=== PATIENT | female | born 1960 | race Asian ===

== ENCOUNTER 2020-04-01 12:53 | Emergency (ER) | payer BC ==
[2020-04-01] MEDS ORDERED: Sodium Chloride 0.9% 1,000 ML IV STA (13:39)
[2020-04-01] MEDS ORDERED: LORazepam 2 MG/ML SDV IVPUSH ONE (13:39)
[2020-04-01] MEDS ORDERED: Ondansetron 4 MG/2 ML SDV IVPUSH ONE (13:39)
--- NOTE | 2020-04-01 14:12 | CR ---
PROCEDURE INFORMATION: Exam: XR Chest, 2 Views Exam date and time: 04/01/2020 2:03 PM Age: 59 years old Clinical indication: Shortness of breath; Chest pain TECHNIQUE: Imaging protocol: XR of the chest Views: 2 views. COMPARISON: No relevant prior studies available. FINDINGS: Lungs: Unremarkable. No consolidation. Pleural space: Unremarkable. No pleural effusion. No pneumothorax. Heart/Mediastinum: Unremarkable. No cardiomegaly. Bones/joints: Unremarkable. IMPRESSION: No acute findings. Thank you for allowing us to participate in the care of your patient. Dictated and Authenticated by: Riley Larson DO 04/01/2020 3:11 PM Central Time ([place] & [place]) ZARINA
--- NOTE | 2020-04-01 14:21 | EDM.PDOC ---
ED HPI GENERAL MEDICAL PROBLEM - General Chief Complaint: Chest Pain Stated Complaint: [facility] Time Seen by Provider: 04/01/20 13:02 Source of Information: Reports: Patient History Limitations: Reports: No Limitations - History of Present Illness INITIAL COMMENTS - FREE TEXT/NARRATIVE: Patient is a 59-year-old female presenting to the ER via [facility] with complaints of a 2-week history of fatigue, shortness of breath, palpitations, back pain, and weakness in her extremities. She speaks limited Mohawk, therefore NICOLE Domingo was used to interpret Mandarin. Patient states that over the last 2 weeks, she has had symptoms of shortness of breath, feeling like her heart is racing, occasional chest pain, and mid upper back pain. Today around 11 AM, she had worsening of symptoms. States that she felt like she could not breathe and her extremities went weak. She was seen in the clinic by Dr. Banuelos. Work-up was completed there and she states it was found to be normal. She was scheduled for an echocardiogram at 2 PM today, however she will miss that appointment now as she is in the ER. She states that she has had a number of test completed while she was still living in [place]. She describes a CT scan of her chest, an MRI, and EKGs. She states that at one point she was told that she had had an ND in the past based on the results of her MRI. She has been taking a medication/supplement being sent to her from [place] by her sister. She is not sure what exactly is in that medication, however she states it supposed to be for chest pain. She denies taking any prescription medications. She denies any fever or chills. She states her shortness of breath is worse when she lies flat. She does admit to feeling "stressed "due to the coronavirus. Vital signs on triage were stable. Temp 98.2, pulse 75, respiratory rate was 24, it has been as high as 38 at times. Oxygen saturation is 100% on room air. Blood pressure 140/69. 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: Reports: IV/IO Left Chest Pain Score (Numeric/FACES): 7 - Related Data Allergies Allergy/AdvReac Type Severity Reaction Status Date / Time oxycodone HCl AdvReac Dizziness Verified 04/01/20 13:17 [From OxyContin] Home Meds: Home Meds LORazepam [Ativan] 0.5 mg PO Q8H PRN #15 tab 04/01/20 [Rx] Ubidecarenone [Co Q-10] 100 mg PO DAILY 04/01/20 [History] Past Medical History Cardiovascular History: Reports: ND Gastrointestinal History: Reports: GERD, Helicobacter Pylori Social & Family History - Tobacco Use Tobacco Use Status *Q: Never Tobacco User - Recreational Drug Use Recreational Drug Use: No ED ROS GENERAL - Review of Systems Review Of Systems: See Below Constitutional: Reports: Fatigue. Denies: Fever, Chills HEENT: Reports: No Symptoms Respiratory: Reports: Shortness of Breath. Denies: Cough Cardiovascular: Reports: Chest Pain, Palpitations. Denies: Edema, Lightheadedness, Syncope Endocrine: Reports: No Symptoms GI/Abdominal: Reports: Nausea. Denies: Abdominal Pain, Diarrhea, Vomiting : Reports: No Symptoms. Denies: Dysuria Musculoskeletal: Reports: No Symptoms Skin: Reports: No Symptoms Neurological: Denies: Dizziness, Headache Psychiatric: Reports: Anxiety Hematologic/Lymphatic: Reports: No Symptoms Immunologic: Reports: No Symptoms ED EXAM, GENERAL - Physical Exam Exam: See Below General Appearance: Alert, WD/WN, Anxious Respiratory/Chest: No Respiratory Distress, Lungs Clear, Normal Breath Sounds, No Accessory Muscle Use, Other (Left-sided chest wall tenderness) Cardiovascular: Normal Peripheral Pulses, Regular Rate, Rhythm, No Edema, No Gallop, No JVD, No Murmur, No Rub GI/Abdominal: Normal Bowel Sounds, Soft, Non-Tender, No Organomegaly, No Distention, No Abnormal Bruit, No Mass Neurological: Alert, Oriented, CN II-XII Intact, Normal Cognition, Normal Gait, Normal Reflexes, No Motor/Sensory Deficits Psychiatric: Normal Affect, Normal Mood Skin Exam: Warm, Dry, Intact, Normal Color, No Rash #2 Interpretation EKG Date: 04/01/20 Time: 14:22 Rhythm: NSR Rate (Beats/Min): 70 Kimberly: Normal P-Wave: Present QRS: Normal ST-T: Normal QT: Normal Course - Vital Signs Last Recorded V/S: Last Vital Signs Temp 98.2 F 04/01/20 12:59 Pulse 75 04/01/20 12:59 Resp 24 H 04/01/20 12:59 BP 140/69 04/01/20 12:59 Pulse Ox 100 04/01/20 12:59 - Orders/Labs/Meds Orders: Active Orders 24 hr Category Date Time Status CORONAVIRUS COVID-19 PCR [facility] Routine Lab 04/01/20 16:16 Received Labs: Laboratory Tests 04/01/20 04/01/20 04/01/20 Range/Units 13:56 13:56 13:56 WBC 6.46 (3.98-10.04) K/mm3 RBC 4.37 (3.98-5.22) M/mm3 Hgb 13.1 (11.2-15.7) gm/dl Hct 39.5 (34.1-44.9) % MCV 90.4 (79.4-94.8) fl MCH 30.0 (25.6-32.2) pg MCHC 33.2 (32.2-35.5) g/dl RDW Std Deviation 39.8 (36.4-46.3) fL Plt Count 261 (182-369) K/mm3 MPV 10.7 (9.4-12.3) fl Neut % (Auto) 67.9 (34.0-71.1) % Lymph % (Auto) 24.8 (19.3-51.7) % Frontier % (Auto) 5.9 (4.7-12.5) % Eos % (Auto) 0.5 L (0.7-5.8) Baso % (Auto) 0.6 (0.1-1.2) % Neut # (Auto) 4.39 (1.56-6.13) K/mm3 Lymph # (Auto) 1.60 (1.18-3.74) K/mm3 Frontier # (Auto) 0.38 H (0.24-0.36) K/mm3 Eos # (Auto) 0.03 L (0.04-0.36) K/mm3 Baso # (Auto) 0.04 (0.01-0.08) K/mm3 D-Dimer, Quantitative < 0.19 L (0.19-0.50) mg/L Sodium 140 (136-145) mEq/L Potassium 3.6 (3.5-5.1) mEq/L Chloride 105 (98-107) mEq/L Carbon Dioxide 24 (21-32) mEq/L Anion Gap 14.6 (5-15) BUN 15 (7-18) mg/dL Creatinine 1.0 (0.55-1.02) mg/dL Est Cr Clr Drug Dosing TNP Estimated GFR (MDRD) 57 (>60) mL/min BUN/Creatinine Ratio 15.0 (14-18) Glucose 125 H (74-106) mg/dL Calcium 9.8 (8.5-10.1) mg/dL Total Bilirubin 0.5 (0.2-1.0) mg/dL AST 15 (15-37) U/L ALT 30 (14-59) U/L Alkaline Phosphatase 98 (46-116) U/L Troponin I 0.021 (0.00-0.056) ng/mL C-Reactive Protein <0.2 (<1.0) mg/dL NT-Pro-B Natriuret Pep (0-125) pg/mL Total Protein 8.4 H (6.4-8.2) g/dl Albumin 4.0 (3.4-5.0) g/dl Globulin 4.4 gm/dL Albumin/Globulin Ratio 0.9 L (1-2) Free T4 (0.76-1.46) ng/dL TSH 3rd Generation (0.358-3.74) uIU/mL Urine Color (Yellow) Urine Appearance (Clear) Urine pH (5.0-8.0) Ur Specific [place] (1.005-1.030) Urine Protein (Negative) Urine Glucose (UA) (Negative) Urine Ketones (Negative) Urine Occult Blood (Negative) Urine Nitrite (Negative) Urine Bilirubin (Negative) Urine Urobilinogen (0.2-1.0) Ur Leukocyte Esterase (Negative) Urine RBC (0-5) /hpf Urine WBC (0-5) /hpf Ur Squamous Epith Cells (0-5) /hpf Urine Bacteria (FEW) /hpf Urine Mucus (FEW) /hpf 04/01/20 04/01/20 04/01/20 Range/Units 13:56 13:56 17:00 WBC (3.98-10.04) K/mm3 RBC (3.98-5.22) M/mm3 Hgb (11.2-15.7) gm/dl Hct (34.1-44.9) % MCV (79.4-94.8) fl MCH (25.6-32.2) pg MCHC (32.2-35.5) g/dl RDW Std Deviation (36.4-46.3) fL Plt Count (182-369) K/mm3 MPV (9.4-12.3) fl Neut % (Auto) (34.0-71.1) % Lymph % (Auto) (19.3-51.7) % Frontier % (Auto) (4.7-12.5) % Eos % (Auto) (0.7-5.8) Baso % (Auto) (0.1-1.2) % Neut # (Auto) (1.56-6.13) K/mm3 Lymph # (Auto) (1.18-3.74) K/mm3 Frontier # (Auto) (0.24-0.36) K/mm3 Eos # (Auto) (0.04-0.36) K/mm3 Baso # (Auto) (0.01-0.08) K/mm3 D-Dimer, Quantitative (0.19-0.50) mg/L Sodium (136-145) mEq/L Potassium (3.5-5.1) mEq/L Chloride (98-107) mEq/L Carbon Dioxide (21-32) mEq/L Anion Gap (5-15) BUN (7-18) mg/dL Creatinine (0.55-1.02) mg/dL Est Cr Clr Drug Dosing Estimated GFR (MDRD) (>60) mL/min BUN/Creatinine Ratio (14-18) Glucose (74-106) mg/dL Calcium (8.5-10.1) mg/dL Total Bilirubin (0.2-1.0) mg/dL AST (15-37) U/L ALT (14-59) U/L Alkaline Phosphatase (46-116) U/L Troponin I 0.028 (0.00-0.056) ng/mL C-Reactive Protein (<1.0) mg/dL NT-Pro-B Natriuret Pep 40 (0-125) pg/mL Total Protein (6.4-8.2) g/dl Albumin (3.4-5.0) g/dl Globulin gm/dL Albumin/Globulin Ratio (1-2) Free T4 1.12 (0.76-1.46) ng/dL TSH 3rd Generation 0.998 (0.358-3.74) uIU/mL Urine Color (Yellow) Urine Appearance (Clear) Urine pH (5.0-8.0) Ur Specific [place] (1.005-1.030) Urine Protein (Negative) Urine Glucose (UA) (Negative) Urine Ketones (Negative) Urine Occult Blood (Negative) Urine Nitrite (Negative) Urine Bilirubin (Negative) Urine Urobilinogen (0.2-1.0) Ur Leukocyte Esterase (Negative) Urine RBC (0-5) /hpf Urine WBC (0-5) /hpf Ur Squamous Epith Cells (0-5) /hpf Urine Bacteria (FEW) /hpf Urine Mucus (FEW) /hpf 04/01/20 Range/Units 17:30 WBC (3.98-10.04) K/mm3 RBC (3.98-5.22) M/mm3 Hgb (11.2-15.7) gm/dl Hct (34.1-44.9) % MCV (79.4-94.8) fl MCH (25.6-32.2) pg MCHC (32.2-35.5) g/dl RDW Std Deviation (36.4-46.3) fL Plt Count (182-369) K/mm3 MPV (9.4-12.3) fl Neut % (Auto) (34.0-71.1) % Lymph % (Auto) (19.3-51.7) % Frontier % (Auto) (4.7-12.5) % Eos % (Auto) (0.7-5.8) Baso % (Auto) (0.1-1.2) % Neut # (Auto) (1.56-6.13) K/mm3 Lymph # (Auto) (1.18-3.74) K/mm3 Frontier # (Auto) (0.24-0.36) K/mm3 Eos # (Auto) (0.04-0.36) K/mm3 Baso # (Auto) (0.01-0.08) K/mm3 D-Dimer, Quantitative (0.19-0.50) mg/L Sodium (136-145) mEq/L Potassium (3.5-5.1) mEq/L Chloride (98-107) mEq/L Carbon Dioxide (21-32) mEq/L Anion Gap (5-15) BUN (7-18) mg/dL Creatinine (0.55-1.02) mg/dL Est Cr Clr Drug Dosing Estimated GFR (MDRD) (>60) mL/min BUN/Creatinine Ratio (14-18) Glucose (74-106) mg/dL Calcium (8.5-10.1) mg/dL Total Bilirubin (0.2-1.0) mg/dL AST (15-37) U/L ALT (14-59) U/L Alkaline Phosphatase (46-116) U/L Troponin I (0.00-0.056) ng/mL C-Reactive Protein (<1.0) mg/dL NT-Pro-B Natriuret Pep (0-125) pg/mL Total Protein (6.4-8.2) g/dl Albumin (3.4-5.0) g/dl Globulin gm/dL Albumin/Globulin Ratio (1-2) Free T4 (0.76-1.46) ng/dL TSH 3rd Generation (0.358-3.74) uIU/mL Urine Color Yellow (Yellow) Urine Appearance Clear (Clear) Urine pH 8.0 (5.0-8.0) Ur Specific [place] 1.025 (1.005-1.030) Urine Protein Negative (Negative) Urine Glucose (UA) Negative (Negative) Urine Ketones Negative (Negative) Urine Occult Blood Negative (Negative) Urine Nitrite Negative (Negative) Urine Bilirubin Negative (Negative) Urine Urobilinogen 0.2 (0.2-1.0) Ur Leukocyte Esterase Negative (Negative) Urine RBC Not seen (0-5) /hpf Urine WBC 0-5 (0-5) /hpf Ur Squamous Epith Cells 0-5 (0-5) /hpf Urine Bacteria Not seen (FEW) /hpf Urine Mucus Not seen (FEW) /hpf Meds: Medications Discontinued Medications Generic Name Dose Route Start Last Admin Trade Name Freq PRN Reason Stop Dose Admin Sodium Chloride 1,000 mls @ 150 mls/hr 04/01/20 13:39 04/01/20 14:33 Normal Saline IV 04/01/20 20:18 150 mls/hr NOW STA Administration Ketorolac Tromethamine 30 mg 04/01/20 15:38 04/01/20 16:10 Toradol IVPUSH 04/01/20 15:39 30 mg ONETIME ONE Administration Lorazepam 0.5 mg 04/01/20 13:39 04/01/20 14:28 Ativan IVPUSH 04/01/20 13:40 0.5 mg ONETIME ONE Administration Ondansetron HCl 4 mg 04/01/20 13:39 04/01/20 14:30 Zofran IVPUSH 04/01/20 13:40 4 mg ONETIME ONE Administration - Re-Assessments/Exams Free Text/Narrative Re-Assessment/Exam: Patient is a 59-year-old female presenting to the emergency department the complaints of a 2-week history of fatigue, shortness of breath, palpitations, back pain, and intermittent chest discomfort. She has been seen in the clinic by Dr. Radha Lizama for similar complaint. He worked up in the clinic and from her report found nothing abnormal. She is scheduled to have an echocardiogram today, however she missed that as she was in the ER. Patient's exam is grossly unremarkable, with exception of some left-sided chest wall tenderness. Lung sounds are clear to auscultation. She does appear quite anxious. Respiratory rate has ranged from the upper 20s to upper 30s. She is hyperventilating and this is likely cause of her weakness of her extremities. I suspect anxiety may be the cause of her symptoms, however we will complete a complete cardiac work-up in the ER. I ordered CBC, CMP, CRP, troponin, D-dimer, EKG, chest x- ray. Have ordered normal saline at 150 mils per hour, Zofran for nausea, and Ativan for anxiety to see if this will slow her respirations and improve her symptom of subjective shortness of breath. 04/01/20 16:19 Hematology was grossly unremarkable. Troponin was negative. CRP was negative. D-dimer analyzer is currently down, however should be back up here shortly. Patient's respiratory rate has decreased to 15-20. She states her shortness of breath has improved. She continues to complain of some back pain. I ordered T oradol 30 mg IV. She continues to be concerned with regards to her heart. At this time, she did state that she has had a partial thyroidectomy due to nodules and is concerned that her thyroid could be abnormal. I have added on thyroid levels. We will repeat a troponin at 1700. If this is found to be normal, we will send her home with a prescription for Ativan for anxiety and a Holter monitor. 04/01/20 18:19 Repeat troponin was also normal. Thyroid hormones are normal, D-dimer is normal, urinalysis shows no infection. 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 When she states she is feeling the palpitations, heart rate has been noted to be normal sinus rhythm in the 70s. Her symptoms have improved significantly after the Ativan administration. She no longer feels short of breath and her respiratory rate has returned to normal. She does still have some intermittent back pain. Discussed with the patient through the use of EN, RN is a [facility] technician that I am highly suspicious that her symptoms are related to anxiety. She states she has been very stressed out and concerned with regards to COVID-19. She states her does not wear a mask and she is very afraid of getting the virus. We will send her home with a 48-hour Holter monitor and a prescription for Ativan 0.5 mg every 8 hours as needed anxiety. I did call and speak with her and update on today's findings. Recommend that she call tomorrow to reschedule her echocardiogram and schedule a follow-up appoint with Dr. Banuelos. Discharge instructions as documented. Departure - Departure Time of Disposition: 17:46 Disposition: Home, Self-Care 01 Condition: Good Clinical Impression: Shortness of breath, Anxiety - Discharge Information *PRESCRIPTION DRUG MONITORING PROGRAM REVIEWED*: Yes *COPY OF PRESCRIPTION DRUG MONITORING REPORT IN PATIENT NOELLE: No Prescriptions: LORazepam [Ativan] 0.5 mg PO Q8H PRN #15 tab PRN Reason: Anxiety Instructions: Shortness of Breath, Adult, [id number], Nonspecific Chest Pain, Adult, [id number], Managing Anxiety, Adult Referrals: Nissa Pantoja NP [Primary Care Provider] - Harjinder Manzano MD [Ordering Only Provider] - Forms: ED Department Discharge, ED Return to Work/School Form Additional Instructions: You were seen in the emergency department today for shortness of breath, chest tightness, back pain, and heart palpitations. Your work-up included blood work including cardiac enzymes, clotting factors, thyroid levels, inflammatory levels, and metabolic panel. You also had an EKG of your heart, urinalysis, and a chest x-ray. Your work-up was all normal. You are not having a heart attack. You do not have blood clots in your lungs. There is no signs of infection. Your thyroid is functioning normally. Your electrolytes are all normal. While in the ER, you received IV fluids, nausea medication, and Ativan for anxiety. This did improve your shortness of breath. As we discussed, further work-up is required including possibility of a stress test and an echocardiogram; however, there is a possibility that your symptoms are all related to anxiety. You have been sent home on a Holter monitor. Follow the instructions as provided for this and return in 48 hours. You have also been given a prescription for Ativan which is for anxiety. Use this every 8 hours as needed for symptoms of anxiety including chest tightness and feeling short of breath. Recommend that you call to reschedule your appointment for your echocardiogram and schedule a follow-up visit with Dr. Banuelos. Return to ER for any new or worsening symptoms of concern. Sepsis Event Note (ED) - Evaluation Sepsis Screening Result: No Definite Risk - Focused Exam Vital Signs: Vital Signs Temp Pulse Resp BP Pulse Ox 04/01/20 12:59 98.2 F 75 24 H 140/69 100 - My Orders Last 24 Hours: My Active Orders 04/01/20 16:16 CORONAVIRUS COVID-19 PCR [facility] Routine - Assessment/Plan Last 24 Hours: My Active Orders 04/01/20 16:16 CORONAVIRUS COVID-19 PCR [facility] Routine
[2020-04-01] MEDS ORDERED: Ketorolac 30 MG/ML SDV IVPUSH ONE (15:38)
== END 2020-04-01 18:25 | disposition home or self-care (01) ==
LOC: JD.ED 12:53
DX: F41.9 Anxiety disorder, unspecified (principal); R06.02 Shortness of breath; I25.2 Old myocardial infarction; Z88.5 Allergy status to narcotic agent; Z20.828 Contact with and (suspected) exposure to other viral communicable diseases
CPT/HCPCS: 36415; 71046; 80053; 81001; 83880; 84439; 84443; 84484; 85025; 85379; 86140; 87635; 93005; 96374; 96375; 99285; J1885; J2060; J2405; J7030; 93010; 99284; U0002

== ENCOUNTER 2020-04-11 21:24 | Emergency (ER) | payer BC ==
--- NOTE | 2020-04-11 21:59 | EDM.PDOCBH ---
ED HPI GENERAL MEDICAL PROBLEM - General Chief Complaint: Behavioral/Psych Stated Complaint: ANXIETY Time Seen by Provider: 04/11/20 21:30 Source of Information: Reports: Patient History Limitations: Reports: No Limitations - History of Present Illness INITIAL COMMENTS - FREE TEXT/NARRATIVE: This is a 59-year-old female. She comes to the ER because she complains of headache and heart racing and she cannot sleep and she is anxious and her stomach hurts. She also complains of her upper extremities being weak in general and she gets tingling in her hands bilaterally at times. She apparently saw her PCP this week and was placed on some escitalopram and she says when she takes it it makes her stomach hurt. She has a sister or relative that is on Effexor 75 mg. She wants to be on this instead because the other medicine is "killing her." Is here on the of this month and had a full work-up cardiac thyroid etc. that was all negative. She also had a Covid test that was negative. Back Pain Score (Numeric/FACES): 7 - Related Data Allergies Allergy/AdvReac Type Severity Reaction Status Date / Time oxycodone HCl AdvReac Dizziness Verified 04/11/20 21:32 [From OxyContin] Home Meds: Home Meds LORazepam [Ativan] 0.5 mg PO Q8H PRN #15 tab 04/01/20 [Rx] Escitalopram [Lexapro] 10 mg PO DAILY 04/11/20 [History] LORazepam [Ativan] 0.5 mg PO Q8H PRN #15 tablet 04/11/20 [Rx] Venlafaxine [Effexor XR] 75 mg PO BEDTIME #30 cap.sr 04/11/20 [Rx] Past Medical History Cardiovascular History: Reports: [place] Gastrointestinal History: Reports: GERD, Helicobacter Pylori Psychiatric History: Reports: Anxiety Endocrine/Metabolic History: Reports: Other (See Below) Other Endocrine/Metabolic History: thyroid nodule removal Social & Family History - Tobacco Use Tobacco Use Status *Q: Never Tobacco User Second Hand Smoke Exposure: No - Caffeine Use Caffeine Use: Reports: Tea - Recreational Drug Use Recreational Drug Use: No ED ROS GENERAL - Review of Systems Review Of Systems: See Below Constitutional: Denies: Fever, Chills HEENT: Reports: No Symptoms Respiratory: Reports: Shortness of Breath. Denies: Wheezing, Cough Cardiovascular: Reports: Chest Pain Endocrine: Reports: No Symptoms GI/Abdominal: Reports: Other (Abdominal discomfort but not pain). Denies: Diarrhea, Nausea, Vomiting : Reports: No Symptoms Musculoskeletal: Reports: Other (Hands are tingly and arms are weak) Skin: Reports: No Symptoms Neurological: Reports: No Symptoms Psychiatric: Reports: Anxiety Hematologic/Lymphatic: Reports: No Symptoms ED EXAM, BEHAVIORAL HEALTH - Physical Exam Exam: See Below Exam Limited By: No Limitations General Appearance: Alert, WD/WN, Anxious Eye Exam: Bilateral Eye: Normal Inspection Ears: Normal External Exam Throat/Mouth: Normal Voice, No Airway Compromise Head: Normocephalic Neck: Supple Respiratory/Chest: No Respiratory Distress, Lungs Clear, Normal Breath Sounds, Other (When I was talking to her respiratory rate was about 26/min) Cardiovascular: Regular Rate, Rhythm, No Murmur, Other (She does not have a racing heart despite her thinking that she does rate was about 72) GI/Abdominal: Normal Bowel Sounds, Soft, Non-Tender. No: No Distention, No Mass, Guarding, Rigid, Rebound, Tender Back Exam: Full Range of Motion Extremities: Normal Inspection, Normal Range of Motion Neurological: Alert, Oriented x 3 Psychiatric: Alert, Poor Eye Contact, Other (Very anxious in demeanor) Skin Exam: Warm, Dry COURSE, BEHAVIORAL HEALTH COMP - Course Vital Signs: Last Vital Signs Temp 96.8 F L 04/11/20 21:30 Pulse 78 04/11/20 21:30 Resp 20 04/11/20 21:30 BP 159/87 H 04/11/20 21:30 Pulse Ox 100 04/11/20 21:30 Orders, Labs, Meds: Active Orders 24 hr Category Date Time Status Venlafaxine [Effexor XR] Med 04/12/20 22:09 Once 75 mg PO BEDTIME ONE Medication Orders Venlafaxine HCl (Effexor Xr) 75 mg PO BEDTIME ONE Stop: 04/12/20 22:10 Last Admin: 04/11/20 22:10 Dose: 75 mg Documented by: SADIA Medications Generic Name Dose Route Start Last Admin Trade Name Freq PRN Reason Stop Dose Admin Venlafaxine HCl 75 mg 04/12/20 22:09 04/11/20 22:10 Effexor Xr PO 04/12/20 22:10 75 mg BEDTIME ONE Administration Discontinued Medications Generic Name Dose Route Start Last Admin Trade Name Tobyq PRN Reason Stop Dose Admin Al Hydroxide/Mg Hydroxide 30 0 ml 04/11/20 22:00 04/11/20 22:10 ml/ Lidocaine HCl 15 ml PO 04/11/20 22:01 45 ml ONETIME ONE Administration Discharge vs Psych Eval/Treatment:: 04/11/20 22:46 We gave the patient an effect sore 75 mg as she had requested. After about 45 minutes when I went into the room she was almost asleep. I will continue with the Effexor 75 mg at nighttime and also provide a few Ativan for her. We will stop the escitalopram since it is causing her some stomach upset. She is to follow-up with Dr. Manzano for additional medications if needed and reevaluation. I encouraged her to get the echocardiogram again since she missed the appointment and has not rescheduled it. Departure - Departure Time of Disposition: 22:47 Disposition: Home, Self-Care 01 Condition: Good Clinical Impression: Depressive disorder, Anxiety Anxiety disorder Qualifiers: Anxiety disorder type: unspecified anxiety disorder Qualified Code(s): F41.9 - Anxiety disorder, unspecified - Discharge Information *PRESCRIPTION DRUG MONITORING PROGRAM REVIEWED*: Not Applicable *COPY OF PRESCRIPTION DRUG MONITORING REPORT IN PATIENT NOELLE: Not Applicable Prescriptions: LORazepam [Ativan] 0.5 mg PO Q8H PRN #15 tablet PRN Reason: Anxiety Venlafaxine [Effexor XR] 75 mg PO BEDTIME #30 cap.sr Instructions: Managing Anxiety, Adult Referrals: Harjinder Manzano MD [Primary Care Provider] - Forms: ED Department Discharge Additional Instructions: STOP the escitalopram. Start the Effexor XR (Venalafaxine) and take 75 mg at nighttime to help you sleep, use the Ativan during the day when you get anxious but only every 8 hours, follow-up with Dr. Manzano recheck and you need to get the go cardiogram rescheduled so they can check out your heart, return to the ER if needed Sepsis Event Note (ED) - Evaluation Sepsis Screening Result: No Definite Risk - Focused Exam Vital Signs: Vital Signs Temp Pulse Resp BP Pulse Ox 04/11/20 21:30 96.8 F L 78 20 159/87 H 100 - My Orders Last 24 Hours: My Active Orders 04/12/20 22:09 Venlafaxine [Effexor XR] 75 mg PO BEDTIME ONE - Assessment/Plan Last 24 Hours: My Active Orders 04/12/20 22:09 Venlafaxine [Effexor XR] 75 mg PO BEDTIME ONE
[2020-04-11] MEDS ORDERED: Alum Hydrox/Mag Hydrox/Simeth 30 ML, Lidocaine 2% 15 ML PO ONE ×2 (22:00)
[2020-04-12] MEDS ORDERED: Venlafaxine 75 MG Cap.ER PO ONE (22:09)
== END 2020-04-11 23:00 | disposition home or self-care (01) ==
LOC: JD.ED 21:24
DX: F41.9 Anxiety disorder, unspecified (principal); F32.9 Major depressive disorder, single episode, unspecified; I25.2 Old myocardial infarction; Z88.5 Allergy status to narcotic agent; Z79.899 Other long term (current) drug therapy
CPT/HCPCS: 99283; A9270

== ENCOUNTER 2020-09-07 12:13 | Emergency (ER) | payer BC ==
[2020-09-07] MEDS ORDERED: HYDROmorphone 0.5 MG/0.5 ML Syringe IM ONE (13:29)
--- NOTE | 2020-09-07 13:35 | EDM.PDOC ---
ED HPI GENERAL MEDICAL PROBLEM - General Chief Complaint: Upper Extremity Injury/Pain Stated Complaint: LT WRIST INJURY Time Seen by Provider: 09/07/20 13:21 Source of Information: Reports: Patient, RN Notes Reviewed History Limitations: Reports: No Limitations - History of Present Illness INITIAL COMMENTS - FREE TEXT/NARRATIVE: Patient is a 59-year-old female who presents to the ER for her left wrist injury. Patient states that she was outside, when a neighbor's dog ran at her, and she ended up falling. She landed on her left wrist. She had pain in the left wrist since then. She notes that this radiates up to her elbow, but can still move her elbow without difficulty. She denies any pain in her shoulder. She denies any sort of numbness or tingling distal to the injury. There is some swelling at the left wrist, with some mild bruising. Patient states that she broke this wrist roughly 7 or 8 years ago as well as she slipped and fell on the ice. Her pain is a 10 out of 10, she was not given anything at home for pain medication. Patient denies any other sick-like symptoms, fever/chills, cough/shortness of breath, nausea/vomiting/diarrhea. - Related Data Allergies Allergy/AdvReac Type Severity Reaction Status Date / Time No Known Allergies Allergy Verified 09/07/20 13:23 Home Meds: Home Meds LORazepam [Ativan] 0.5 mg PO Q8H PRN #15 tab 04/01/20 [Rx] Escitalopram [Lexapro] 10 mg PO DAILY 04/11/20 [History] LORazepam [Ativan] 0.5 mg PO Q8H PRN #15 tablet 04/11/20 [Rx] Venlafaxine [Effexor XR] 75 mg PO BEDTIME #30 cap.sr 04/11/20 [Rx] Acetaminophen/HYDROcodone [[place] 325-5 MG] 1 tab PO Q6H PRN #20 tablet 09/07/20 [Rx] Past Medical History Cardiovascular History: Reports: SD Gastrointestinal History: Reports: GERD, Helicobacter Pylori Psychiatric History: Reports: Anxiety Endocrine/Metabolic History: Reports: Other (See Below) Other Endocrine/Metabolic History: thyroid nodule removal Social & Family History - Caffeine Use Caffeine Use: Reports: Tea Review of Systems - Review of Systems Review Of Systems: Comprehensive ROS is negative, except as noted in HPI. ED EXAM, GENERAL - Physical Exam Exam: See Below Exam Limited By: No Limitations General Appearance: Alert, WD/WN, No Apparent Distress Respiratory/Chest: No Respiratory Distress, Lungs Clear, Normal Breath Sounds, No Accessory Muscle Use, Chest Non-Tender Cardiovascular: Normal Peripheral Pulses, Regular Rate, Rhythm, No Edema Peripheral Pulses: 2+: Radial (L), Radial (R) Extremities: Joint Swelling (left wrist), Limited Range of Motion (left wrist d/t pain.) Neurological: Alert, Oriented, Normal Cognition, No Motor/Sensory Deficits Psychiatric: Normal Affect, Normal Mood Skin Exam: Warm, Dry, Intact, No Rash, Ecchymosis (slight to left wrist) ED TRAUMA EXTREMITY PROCEDURES - Splinting Left Upper Extremity Splint Site: left wrist Pre-Procedure NV Status: Normal Post-Procedure NV Status: Normal Splint Material: Fiberglass Splint Design: Gutter (ulnar gutter short arm) Applied & Form Fitted By: Provider, Other ([employer] student) Provider Post-Splint Application NV Check: NV Status Normal, Good Position Complications: No Course - Vital Signs Last Recorded V/S: Last Vital Signs Temp 97 F 09/07/20 13:42 Pulse 76 09/07/20 13:42 Resp 16 09/07/20 13:42 BP 120/70 09/07/20 13:42 Pulse Ox 98 09/07/20 13:42 - Orders/Labs/Meds Orders: Active Orders 24 hr Category Date Time Status Wrist Comp Min 3V Lt [CR] Stat Exams 09/07/20 13:21 Ordered Meds: Medications Discontinued Medications Generic Name Dose Route Start Last Admin Trade Name Stuart PRN Reason Stop Dose Admin Hydromorphone HCl 0.5 mg 09/07/20 13:29 09/07/20 13:36 Hydromorphone 0.5 Mg/0.5 Ml Syringe IM 09/07/20 13:30 0.5 mg ONETIME ONE Administration - Re-Assessments/Exams Free Text/Narrative Re-Assessment/Exam: 09/07/20 13:38 Patient presents to the ER for her left wrist injury, we will go ahead and get x-rays, give her 0.5 mg IM Dilaudid for ongoing pain management. 09/07/20 14:11 The patient x-rays have been done, and demonstrates a distal radius fracture, and a possible ulnar styloid fracture, patient will be placed in a short arm fiberglass type splint, discharged home with general recommendations. Likely the patient will need some sort of surgical management, i.e. pins for repair of her wrist. Departure - Departure Time of Disposition: 14:12 Disposition: Home, Self-Care 01 Condition: Good Clinical Impression: Distal radius fracture, left Qualifiers: Encounter type: initial encounter Fracture type: closed Fracture morphology: other fracture Qualified Code(s): S52.592A - Other fractures of lower end of left radius, initial encounter for closed fracture Fracture of ulnar styloid Qualifiers: Encounter type: initial encounter Fracture type: closed Fracture alignment: nondisplaced Laterality: left Qualified Code(s): S52.615A - Nondisplaced fract ure of left ulna styloid process, initial encounter for closed fracture - Discharge Information *PRESCRIPTION DRUG MONITORING PROGRAM REVIEWED*: Yes *COPY OF PRESCRIPTION DRUG MONITORING REPORT IN PATIENT NOELLE: No Instructions: Wrist Fracture Treated With Immobilization, [id number], Cast or Splint Care, Adult, [id number] Referrals: Harjinder Manzano MD [Primary Care Provider] - Forms: ED Department Discharge Additional Instructions: You have been evaluated in the ED for your left wrist injury. Your x-ray demonstrated a fracture of the distal radius, or the larger bone in your left wrist, and also a ulnar styloid fracture, this is a very small fracture off the tip of the ulna. Please use ice as tolerated to the affected area. You may elevate the affected area to provide further relief from swelling. You may take Tylenol 500 mg or ibuprofen 600mg q6 hrs for pain relief. Please do so until you have a tolerable level of pain with activity. Do not exceed 4000mg Tylenol, Do not exceed 3200mg ibuprofen in a 24 hour time period. You were given a prescription for a strong pain medication, hydrocodone/acetaminophen 5/325, please take 1 tab every 6 hours as needed for pain not relieved by Tylenol or ibuprofen alone. Please note this does contain Tylenol in it, so do not take more than 4000 mg in a 24-hour time span. These medications can be addictive, so please take as few as possible to achieve adequate pain control. These meds can also be quite constipating, recommend that you increase your oral fluid intake and take a stool softener like MiraLAX while taking these medications. This medication was electronically sent to the [facility] located in the [employer] [facility]. Please call Ortho for follow-up and further evaluation Dr. Clark is our orthope dic surgeon, his office number is [phone]. Please call and set up an appointment as soon as possible for further management. Please return to ED if your symptoms should change or worsen. Sepsis Event Note (ED) - Focused Exam Vital Signs: Vital Signs Temp Pulse Resp BP Pulse Ox 09/07/20 13:42 97 F 76 16 120/70 98 - My Orders Last 24 Hours: My Active Orders 09/07/20 13:21 Wrist Comp Min 3V Lt [CR] Stat - Assessment/Plan Last 24 Hours: My Active Orders 09/07/20 13:21 Wrist Comp Min 3V Lt [CR] Stat
--- NOTE | 2020-09-07 14:16 | CR ---
Left wrist: 4 views left wrist were obtained. Comparison: Prior left wrist study of 07/24/13 is available. Acute fracture is noted within the distal radius. This radial fracture shows a transverse orientation as well as a vertical fracture line extending into the articular margin. Minimal fracture within the base of the ulnar styloid process is seen. No additional fracture or other abnormality is appreciated. Soft tissue swelling is noted. Impression: 1. Distal radial fracture with transverse and vertical alignment into the articular margin. 2. Small ulnar styloid avulsion fracture. 3. Soft tissue swelling. Diagnostic code #3
== END 2020-09-07 14:30 | disposition home or self-care (01) ==
LOC: JD.ED 12:13
DX: S52.592A Other fractures of lower end of left radius, initial encounter for closed fracture (principal); S52.615A Nondisplaced fracture of left ulna styloid process, initial encounter for closed fracture; I25.2 Old myocardial infarction; Z79.899 Other long term (current) drug therapy; W18.30XA Fall on same level, unspecified, initial encounter
CPT/HCPCS: 29125; 73110; 96372; 99283; J1170

== ENCOUNTER 2022-12-14 19:17 | Emergency (ER) | payer SELFPAY ==
[2022-12-14 19:41] LABS: BASOPHILS ABSOLUTE AUTO 0.01 K/mm3 (0.01-0.08); BASOPHILS PERCENT AUTO 0.2 % (0.1-1.2); EOSINOPHILS ABSOLUTE AUTO 0.05 K/mm3 (0.04-0.36); EOSINOPHILS PERCENT AUTO 0.8 (0.7-5.8); HEMATOCRIT 37.5 % (34.1-44.9); HEMOGLOBIN 12.6 gm/dl (11.2-15.7); IMMATURE GRAN ABSOLUTE AUTO 0.01 K/mm3 (0.00-0.10); IMMATURE GRAN PERCENT AUTO 0.2 % (<=1.0); LYMPHOCYTES ABSOLUTE AUTO 3.24 K/mm3 (1.18-3.74); LYMPHOCYTES PERCENT AUTO 49.1 % (19.3-51.7); MEAN CORPUSCULAR HEMOGLOBIN 30.7 pg (25.6-32.2); MEAN CORPUSCULAR HGB CONC 33.6 g/dl (32.2-35.5); MEAN CORPUSCULAR VOLUME 91.2 fl (79.4-94.8); MEAN PLATELET VOLUME 10.8 fl (9.4-12.3); MONOCYTES ABSOLUTE AUTO 0.52 K/mm3 (0.24-0.36); MONOCYTES PERCENT AUTO 7.9 % (4.7-12.5); NEUTROPHILS ABSOLUTE AUTO 2.77 K/mm3 (1.56-6.13); NEUTROPHILS PERCENT AUTO 41.8 % (34.0-71.1); PLATELET COUNT,PLT 236 K/mm3 (182-369); RED BLOOD CELL COUNT 4.11 M/mm3 (3.98-5.22)
[2022-12-14] MEDS ORDERED: Aspirin 81 MG Tab.Chew PO ONE (19:43)
[2022-12-14] MEDS ORDERED: Morphine 2 MG/ML SYRINGE IVPUSH ONE (19:44)
[2022-12-14] MEDS ORDERED: Ondansetron 4 MG/2 ML SDV IVPUSH ONE (19:44)
[2022-12-14 20:01] LABS: INR 1.06; PROTHROMBIN TIME 11.3 SECONDS (9.7-12.0)
[2022-12-14 20:02] LABS: PTT,PARTIAL THROMBOPLSTIN TIME 27.4 SECONDS (21.7-31.4)
[2022-12-14 20:03] LABS: D-DIMER QUANTITATIVE < 0.19 mg/L (0.19-0.50)
[2022-12-14 20:11] LABS: ALANINE AMINOTRANSFERASE,ALT 15 U/L (14-59); ALKALINE PHOSPHATASE 88 U/L (46-116); ANION GAP 14.4 (5-15); ASPARTATE AMNIOTRANSFERASE,AST 14 U/L (15-37); BILIRUBIN TOTAL 0.3 mg/dL (0.2-1.0); BLOOD UREA NITROGEN,BUN 15 mg/dL (7-18); BUN/CREATININE RATIO 18.8 (14-18); CALCIUM 9.1 mg/dL (8.5-10.1); CARBON DIOXIDE,CO2 24 mEq/L (21-32); CHLORIDE,CL 105 mEq/L (98-107); CREATININE 0.8 mg/dL (0.55-1.02); ESTIMATED GFR 84 mL/min (>60); GLUCOSE RANDOM 148 mg/dL (70-99); POTASSIUM,K 3.4 mEq/L (3.5-5.1); SODIUM,NA 140 mEq/L (136-145); TROPONIN I HIGH SENSITIVITY 11 pg/mL (<=51)
== END 2022-12-14 21:29 | disposition home or self-care (01) ==
LOC: JD.ED 19:17
DX: R07.89 Other chest pain (principal); R11.2 Nausea with vomiting, unspecified; I25.2 Old myocardial infarction
CPT/HCPCS: 36415; 71045; 80053; 83735; 83880; 84484; 85025; 85379; 85610; 85730; 93005; 96374; 96375; 99285; A9270; J2270; J2405; 93010; 99284

== ENCOUNTER 2023-12-22 09:38 | Inpatient (IN) | payer BC, OTHER ==
[2023-12-22] MEDS ORDERED: Sodium Chloride 0.9% 10 ML Syringe FLUSH PRN (09:58)
[2023-12-22] MEDS: Sodium Chloride 0.9% 10 ML Syringe FLUSH PRN ×2 (10:03→10:47)
[2023-12-22] MEDS: Iopamidol 755 Mg/ML 100 ML Bottle IVPUSH ONE (10:03)
[2023-12-22] MEDS: Sodium Chloride 0.9% 100 ML IV SCH (10:03)
[2023-12-22 10:25] LABS: BASOPHILS PERCENT AUTO 0.6 % (0.0-1.0); EOSINOPHILS ABSOLUTE AUTO 0.1 K/mm3 (0.0-0.4); EOSINOPHILS PERCENT AUTO 1.7 % (0.0-6.0); HEMATOCRIT 38.7 % (37.0-47.0); IMMATURE GRAN ABSOLUTE AUTO 0.01 K/mm3 (0.00-0.05); IMMATURE GRAN PERCENT AUTO 0.2 % (0.0-0.4); LYMPHOCYTES ABSOLUTE AUTO 1.9 K/mm3 (1.0-4.8); MEAN CORPUSCULAR HEMOGLOBIN 30.6 pg (28.0-32.0); MEAN CORPUSCULAR HGB CONC 33.6 g/dl (32.0-36.0); MEAN CORPUSCULAR VOLUME 91.1 fl (83.0-99.0); MEAN PLATELET VOLUME 10.8 fl (9.4-12.3); MONOCYTES ABSOLUTE AUTO 0.3 K/mm3 (0.0-0.8); MONOCYTES PERCENT AUTO 6.8 % (0.0-8.0); NEUTROPHILS ABSOLUTE AUTO 2.4 K/mm3 (1.8-7.7); NEUTROPHILS PERCENT AUTO 50.7 % (41.0-71.0); PLATELET COUNT,PLT 203 K/mm3 (150-400); RED BLOOD CELL COUNT 4.25 M/mm3 (4.10-5.30); WHITE BLOOD CELL COUNT,WBC 4.72 K/mm3 (3.9-11.3)
[2023-12-22 10:40] LABS: INR 1.05; PROTHROMBIN TIME 11.1 SECONDS (9.7-12.0)
[2023-12-22 10:41] LABS: PTT,PARTIAL THROMBOPLSTIN TIME 26.2 SECONDS (21.7-31.4)
[2023-12-22 10:46] LABS: A/G RATIO 1.2 (1-2); ALBUMIN 4.2 g/dl (3.4-5.0); ANION GAP 11.9 (5-15); BILIRUBIN TOTAL 0.6 mg/dL (0.2-1.0); BUN/CREATININE RATIO 15.6 (14-18); CALCIUM 9.1 mg/dL (8.5-10.1); CREATININE 0.9 mg/dL (0.55-1.02); EST CRCL DRUG DOSING (CG) 55.97 mL/min; MAGNESIUM 2.1 mg/dL (1.8-2.4); POTASSIUM,K 3.9 mEq/L (3.5-5.1); PROTEIN TOTAL,TP 7.8 g/dl (6.4-8.2)
[2023-12-22 10:47] LABS: APPEARANCE,URINE CLEAR (Clear); BILIRUBIN,URINE NEGATIVE (Negative); COLOR,URINE LIGHT YELLOW (Yellow); GLUCOSE,URINE NEGATIVE (Negative); KETONES,URINE NEGATIVE (Negative); LEUKOCYTE ESTERASE,URINE NEGATIVE (Negative); NITRITE,URINE NEGATIVE (Negative); OCCULT BLOOD,URINE NEGATIVE (Negative); PROTEIN,URINE NEGATIVE (Negative); UROBILINOGEN,URINE 0.2 (0.2-1.0)
[2023-12-22] MEDS: Sodium Chloride 0.9% 1,000 ML IV ONE (10:48)
[2023-12-22] MEDS: Aspirin 81 MG Tab.Chew PO ONE (12:31)
== END 2023-12-22 17:31 | disposition home or self-care (01) | DRG 93 ==
LOC: JD.ED 09:38 → JD.MS 12:31
PROVIDERS: ADMIT Student in an Organized Health Care Education/Training Program; ATTEND Student in an Organized Health Care Education/Training Program
DX: R20.0 Anesthesia of skin (principal); R53.1 Weakness; R19.7 Diarrhea, unspecified; I25.2 Old myocardial infarction; K21.9 Gastro-esophageal reflux disease without esophagitis; F41.9 Anxiety disorder, unspecified; E03.9 Hypothyroidism, unspecified; E78.5 Hyperlipidemia, unspecified; Z86.16 Personal history of COVID-19; Z90.710 Acquired absence of both cervix and uterus; Z98.890 Other specified postprocedural states; Z79.890 Hormone replacement therapy; Z79.899 Other long term (current) drug therapy
CPT/HCPCS: 36415; 70450; 70450-26; 70496; 70496-26; 70498; 70498-26; 70551; 70551-26; 80053; 81003; 82947; 83735; 84484; 85025; 85610; 85730; 93005; 93306; 96360; 99285-25; A9270-GY; J3490; J7030; Q9967